=== PATIENT | male | born 1950 | race Native Hawaiian/Other Pacific Islander ===

== ENCOUNTER 2017-07-12 08:39 | Outpatient (CLI) | payer OTHER ==
[2017-07-12 09:13] LABS: PLATELET COUNT 178 K/uL (142-355)
[2017-07-12 09:30] LABS: SODIUM 135 mmol/L (136-145)
== END 2017-07-12 18:57 | disposition home or self-care (01) ==
LOC: LABW 08:39
PROVIDERS: Internal Medicine
DX: Z00.00 Encounter for general adult medical examination without abnormal findings (principal); I10 Essential (primary) hypertension; N52.8 Other male erectile dysfunction; Z12.5 Encounter for screening for malignant neoplasm of prostate
CPT/HCPCS: 36415; 80053; 80061; 84153; 84443; 85027; 86140

== ENCOUNTER 2018-07-19 09:52 | Outpatient (CLI) | payer OTHER ==
[2018-07-19 10:23] LABS: PLATELET COUNT 188 K/uL (142-355)
[2018-07-19 10:49] LABS: POTASSIUM 4.1 mmol/L (3.6-5.2)
== END 2018-07-19 22:40 | disposition home or self-care (01) ==
LOC: LABW 09:52
PROVIDERS: Internal Medicine
DX: R73.01 Impaired fasting glucose (principal); I10 Essential (primary) hypertension; Z23 Encounter for immunization; Z12.5 Encounter for screening for malignant neoplasm of prostate
CPT/HCPCS: 36415; 80053; 80061; 83036; 84153; 84443; 85027

== ENCOUNTER 2018-11-23 11:41 | Outpatient (CLI) | payer OTHER | END 2018-11-23 20:08 | disposition home or self-care (01) | LOC: RAD 11:41 | DX: M54.16 Radiculopathy, lumbar region (principal) ==

== ENCOUNTER 2019-08-17 08:23 | Outpatient (CLI) | payer OTHER, MEDICARE ==
[2019-08-17 08:54] LABS: PLATELET COUNT 157 K/uL (142-355)
[2019-08-17 09:16] LABS: POTASSIUM 4.4 mmol/L (3.6-5.2)
== END 2019-08-17 19:50 | disposition home or self-care (01) ==
LOC: LABW 08:23
PROVIDERS: Internal Medicine
DX: Z00.00 Encounter for general adult medical examination without abnormal findings (principal); E78.00 Pure hypercholesterolemia, unspecified; I10 Essential (primary) hypertension; Z12.5 Encounter for screening for malignant neoplasm of prostate; Z79.899 Other long term (current) drug therapy
CPT/HCPCS: 36415; 80053; 80061; 83036; 84153; 84443; 85027

== ENCOUNTER 2020-09-06 08:43 | Outpatient (CLI) | payer OTHER, MEDICARE ==
[2020-09-06 09:20] LABS: PLATELET COUNT 203 K/uL (142-355)
[2020-09-06 09:35] LABS: POTASSIUM 4.2 mmol/L (3.6-5.2)
== END 2020-09-06 18:55 | disposition home or self-care (01) ==
LOC: LABW 08:43
PROVIDERS: ATTEND Internal Medicine
DX: E78.00 Pure hypercholesterolemia, unspecified (principal); Z79.899 Other long term (current) drug therapy; I10 Essential (primary) hypertension; Z12.5 Encounter for screening for malignant neoplasm of prostate
CPT/HCPCS: 36415; 80053; 80061; 83036; 84153; 84443; 85027

== ENCOUNTER 2021-03-04 11:49 | Outpatient (CLI) | payer OTHER, MEDICARE | END 2021-03-04 22:17 | disposition home or self-care (01) | LOC: US 11:49 | PROVIDERS: ATTEND Nurse Practitioner | DX: N50.812 Left testicular pain (principal) ==

== ENCOUNTER 2022-07-22 08:27 | Outpatient (CLI) | payer OTHER, MEDICARE | END 2022-07-22 19:28 | disposition home or self-care (01) | LOC: US 08:27 | PROVIDERS: ATTEND Specialist | DX: R31.9 Hematuria, unspecified (principal) ==

== ENCOUNTER 2022-10-21 15:17 | Outpatient (CLI) | payer OTHER, MEDICARE | END 2022-10-21 19:33 | disposition home or self-care (01) | LOC: RAD 15:17 | PROVIDERS: ATTEND Registered Nurse | DX: M54.32 Sciatica, left side (principal) ==

== ENCOUNTER 2022-11-04 09:31 | Outpatient (CLI) | payer OTHER, MEDICARE | END 2022-11-04 19:07 | disposition home or self-care (01) | LOC: MRI 09:31 | PROVIDERS: ATTEND Registered Nurse | DX: M54.41 Lumbago with sciatica, right side (principal) ==

== ENCOUNTER 2023-01-21 08:22 | Outpatient (CLI) | payer OTHER, MEDICARE | END 2023-01-21 17:00 | disposition home or self-care (01) | LOC: US 08:22 | PROVIDERS: ATTEND Specialist | DX: R31.9 Hematuria, unspecified (principal) ==